=== PATIENT | male | born 1975 | race Two or more races ===

== ENCOUNTER 2016-10-14 01:12 | Emergency (ER) | payer SELFPAY ==
[~2016-10-14] VITALS: Ht 167.6 cm; Wt 68.0 kg
--- NOTE | 2016-10-14 01:30 | NUR ---
PT BIBA, PT IS A/OX4 BREATHING EFFORTLESSLY ON ROOM AIR, PT STATES HE JUST DRANK TO MUCH TONIGHT AND IS NOT FEELING GOOD, PT STATES EH WAS DRINKING HARD ALCOHOL BUT DOES NOT KNOW HOW MUCH HE DRANK, PT ON MONITOR, MD ELIDA MADE AWARE WILL CONTINUE TO MONITOR.
--- NOTE | 2016-10-14 01:52 | NUR ---
PT TO CT
[2016-10-14 03:36] VITALS: BP 138/82
--- NOTE | 2016-10-14 03:36 | NUR ---
Patient discharged to home in stable condition. Written and verbal after care instructions given. Patient verbalizes understanding of instruction. Pt ambulatory with a steady gait. VSS, NAD noted on DC.
== END 2016-10-14 03:37 | disposition home or self-care (01) ==
LOC: ER 01:18
DX: F10.129 Alcohol abuse with intoxication, unspecified (principal); R41.82 Altered mental status, unspecified
CPT/HCPCS: 70450; 82962; 99284; A4606; Z7610

== ENCOUNTER 2018-01-23 00:01 | Emergency (ER) | payer SELFPAY ==
[~2018-01-23] VITALS: Ht 180.3 cm; Wt 95.3 kg
--- NOTE | 2018-01-23 00:10 | NUR ---
PATIENT TO ER BED 12. BIB[address]RE[address] FOR ETOH. PATIENT DENIES ANY MEDICAL COMPLAINTS AT THIS TIME. 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 VSS/RESP EVEN UNLABORED/NAD NOTED/SKIN WARM AND DRY/AFEBRILE/DENIES N-V-D/AOX4. AWAITNG MD VILLEDA.
--- NOTE | 2018-01-23 02:21 | NUR ---
PATIENT RESTING QUIETLY, AROUSES EASILY TO VOICE. VSS/RESP EVEN UNLABORED. RN TO CONTINUE MONITORING PROVIDING SAFETY/COMFORT MEASURES.
--- NOTE | 2018-01-23 04:11 | NUR ---
Patient discharged to home in stable condition. Written and verbal after care instructions given. Patient verbalizes understanding of instruction. Patient is awake and alert to self, day, and place. Patient ambulatory with a steady gait.
[2018-01-23 04:12] VITALS: BP 132/81
== END 2018-01-23 04:13 | disposition home or self-care (01) ==
LOC: ER 00:02
DX: F10.10 Alcohol abuse, uncomplicated (principal); Z60.2 Problems related to living alone
CPT/HCPCS: A4606; Z7610